=== PATIENT | male | born 1965 | race Caucasian/White ===

== ENCOUNTER → 2022-02-07 | Day surgery (SDC) | payer OTHER ==
[~2022-02-07] VITALS: Ht 175.2 cm; Wt 100.0 kg
[~2022-02-07] MED LIST: HYDROmorphone 2 MG/ML VIAL (DILAUDID) IV ONE; KETOROLAC 30 MG/ML VIAL IVP STA; LACTATED RINGERS 1,000 ML IV PRN; LIDOCAINE PF 2% 5 ML (XYLOCAINE) VIAL ONE; MIDAZOLAM 2 MG/2 ML (VERSED) VIAL INJ STA; MIDAZOLAM 2 MG/2 ML (VERSED) VIAL IVP ONE; NS 1000 ML IV BAG IV STA; NS IV 1000 ML 1,000 ML ONE; ONDANSETRON 4 MG/2 ML (SDV) Z0FRAN IVP PRN; ONDANSETRON 4 MG/2 ML (SDV) Z0FRAN ONE; OXC5T PO; SUCCINYLCHOLINE INJ 20 MG/1 ML 10 ML VIAL ONE; fentaNYL INJ 100 MCG/2 ML AMP INJ STA; fentaNYL INJ 100 MCG/2 ML AMP IVP ONE; fentaNYL INJ 100 MCG/2 ML AMP IVP STA; fentaNYL INJ 100 MCG/2 ML AMP ONE; proPOfol 200 MG/20 ML (DIPRIVAN) VIAL IV ONE
--- NOTE | 2022-02-07 16:42 | ED Upper Extremity ---
General Chief Complaint: Upper Extremity Stated Complaint: WC LT SHOULDER INJ Nursing Triage Note: PT ARRIVAL TO ER VIA WHEELCHAIR WITH COMPLAINT OF RIGHT SIDED PAIN AND LEFT SHOULDER PAIN. PT STATES THAT HE WAS WORKING AT THE [employer] AND A 900 LB STEER RAMMED INTO HIM AND KNOCKED HIM TO THE GROUND. PT IS HAVING SEVERE PAIN TO LEFT SHOULDER/CLAVICLE REGION. STAFF ON SITE SPLINTED SHOULDER AND ARM WITH LARRY WRAP. Source: patient, family History of Present Illness Date Seen by Provider: Feb 07, 2022 Time Seen by Provider: 16:14 Initial Comments 56-year-old male presenting by private vehicle with complaints of left shoulder pain and clavicle pain after being knocked down by a steer. He was working at the [employer] when a 900 pound steer hit him and knocked him to the ground. He denies hitting his head or losing consciousness. He denies any other injuries besides his shoulder and clavicle. He presents in a improvised splint made with an Larry wrap and ice on his shoulder. He states that he last ate around 1:30 PM. He has been drinking water prior to arrival. He has intact sensation and movement to his hand and fingers with good pulses and capillary refill. He denies prior history of injury to the shoulder Onset: just prior to arrival Severity: severe Pain/Injury Location: left shoulder Method of Injury: direct blow Modifying Factors: Worse With Movement Allergies and Home Medications Allergies Coded Allergies: No Known Drug Allergies (Unverified , 02/07/22) Patient Home Medication List Home Medication List Reviewed: Yes Oxycodone Hcl (Oxyir Tablet) 5 Mg Tab, 5 MG PO Q4H Prescribed by: HOMER CALHOUN MD on 02/07/222039 Review of Systems Constitutional: no symptoms reported EENTM: no symptoms reported Respiratory: no symptoms reported Cardiovascular: no symptoms reported Gastrointestinal: no symptoms reported Genitourinary: no symptoms reported Musculoskeletal: see HPI Skin: No change in color Psychiatric/Neurological: Anxiety; Denies Numbness, Denies Paresthesia Past Gjfoyrw-Edzuxv-Ncmboa Hx Patient Social History Tobacco Use?: No Use of E-Cig and/or Vaping dev: No Substance use?: No Alcohol Use?: Yes Alcohol type: Beer Alcohol Frequency: Daily Pt feels they are or have been: No Immunizations Up To Date Influenza Vaccine Up-to-Date: No; Not Current Physical Exam Vital Signs Vital Signs - First Documented 02/07/22 02/07/22 16:21 17:22 Temp 36.7 Pulse 68 Resp 22 B/P (MAP) 160/77 (104) Pulse Ox 98 O2 Delivery Room Air O2 Flow Rate 4.00 4.00 Capillary Refill : Less Than 3 Seconds Height, Weight, BMI Height: '" Weight: lbs. oz. kg; 32.00 BMI Method: General Appearance: moderate distress HEENT: PERRL/EOMI, pharynx normal Neck: non-tender, full range of motion, supple, normal inspection Cardiovascular: normal peripheral pulses, regular rate, rhythm Respiratory: No chest non-tender (tender to palpation left scapula and chest wall); lungs clear, normal breath sounds Shoulder: asymmetry (left shoulder deformity and appears different than right shoulder), bone tenderness, deformity, limited ROM (due to pain in left shoulder), pain (left shoulder) Elbow/Forearm: normal inspection, non-tender, no evidence of injury Wrist: Yes normal inspection, Yes non-tender, Yes no evidence of injury Hand: normal inspection, non-tender, no evidence of injury, normal ROM, Bilateral Neurologic/Tendon: normal sensation, normal motor functions Neurologic/Psychiatric: alert, oriented x 3 Skin: normal color, warm/dry Procedures/Interventions Patient Education: Explained Benefits, Explained Risks, Pt. Ack. Understanding Agreement on procedure with pt: Yes Patient History: Heavy Snoring Breath Sounds per Auscultation: Clear Heart Sounds per Auscultation: Regular Airway Exam: Mouth opens >2 fingers, Neck Full Range of Motion, Visulation of Uvula Sedation Adminstration Time: 17:33 Total Time spent in CS 45 minutes Conscious sedation was started at 1733 with 50 mcg of fentanyl and 5 mg of Versed. Patient was somnolent but arousable. His blood pressure did improve after the medications were administered. Using a traction countertraction process the left shoulder dislocation was attempted to be reduced. Patient continued to tense up periodically so additional milligram of Versed was given and 50 mcg of fentanyl. Continue to hold constant pressure on the left shoulder to attempt to fatigue the muscles of the shoulder so would reduce. Patient had sonorous respirations but aroused to voice. He still was not relaxing enough to get the left shoulder to reduce. Additional 2 mg of Versed were administered and another 50 mcg of fentanyl. Still with no progress on the reduction so another 2 mg of Versed and 25 mcg of fentanyl were administered. Patient remained hemodynamically stable during the procedure. He again had sonorous respirations but aroused to voice. He never relaxed enough to have the left shoulder go back into socket. He remained neurovascularly and tendon intact distally after the attempted reduction. After 45 minutes of trying to reduce the shoulder I called Dr. Calhoun the on-call orthopedic doctor. He agreed to take the patient to the operating room to sedate him with anesthesia to have deeper sedation and relaxation to get the shoulder to reduce. Dr. Long in the emergency department was also notified as the patient will be stopping there prior to going to the operating room. Plan is to discharge to home after the reduction is achieved in the OR. Re-examination Time: 18:20 Progress/Results/Core Measures Results/Orders Lab Results Laboratory Tests Test 02/07/22 16:39 Range/Units Urine Color YELLOW Urine Clarity CLEAR Urine pH 6.5 5-9 Urine Specific [place] 1.020 1.016-1.022 Urine Protein NEGATIVE NEGATIVE Urine Glucose (UA) NEGATIVE NEGATIVE Urine Ketones NEGATIVE NEGATIVE Urine Nitrite NEGATIVE NEGATIVE Urine Bilirubin NEGATIVE NEGATIVE Urine Urobilinogen 1.0 < = 1.0 MG/DL Urine Leukocyte Esterase NEGATIVE NEGATIVE Urine RBC (Auto) NEGATIVE NEGATIVE Urine RBC 5-10 H /HPF Urine WBC NONE /HPF Urine Crystals NONE /LPF Urine Bacteria TRACE /HPF Urine Casts NONE /LPF Urine Mucus LARGE H /LPF Urine Culture Indicated NO My Orders Orders - LIANNA MOORE MD Ed Iv/Invasive Line Start (02/07/22 16:20) Ketorolac Injection (Toradol Injection) (02/07/22 16:20) Fentanyl Inj (Sublimaze Injection) (02/07/22 16:20) Ua Culture If Indicated (02/07/22 16:35) Shoulder 3 View Left (02/07/22 16:35) Fentanyl Inj (Sublimaze Injection) (02/07/22 17:05) Conscious Sedation (02/07/22 17:05) Midazolam Injection (Versed Injection) (02/07/22 17:05) Fentanyl Inj (Sublimaze Injection) (02/07/22 17:05) Ns Iv 1000 Ml (Sodium Chloride 0.9%) (02/07/22 17:05) Monitor-Rhythm Ecg Trace Only (02/07/22 17:05) End Tidal Co2 (02/07/22 17:05) Vital Signs-Conscious Sedation (02/07/22 17:05) Consent-Obtain Consent For (02/07/22 17:05) Shoulder Immoblizer (02/07/22 17:28) Fentanyl Inj (Sublimaze Injection) (02/07/22 17:47) Midazolam Injection (Versed Injection) (02/07/22 19:45) Midazolam Injection (Versed Injection) (02/07/22 19:45) Midazolam Injection (Versed Injection) (02/07/22 19:45) Ns Iv 1000 Ml (Sodium Chloride 0.9%) (02/07/22 17:34) Medications Given in ED Current Medications Medications Dose Ordered Sig/Alexis Route Start Time Stop Time Status Last Admin Dose Admin Fentanyl Citrate 100 mcg STK-MED ONCE .ROUTE 02/07/22 17:47 02/07/22 17:50 DC 02/07/22 17:47 50 MCG Vital Signs/I&O 02/07/22 02/07/22 02/07/22 02/07/22 16:21 17:22 19:43 20:32 Temp 36.7 Pulse 68 88 Resp 22 16 B/P (MAP) 160/77 (104) 167/100 (122) Pulse Ox 98 99 O2 Delivery Room Air Nasal Cannula Room Air Room Air O2 Flow Rate 4.00 4.00 02/07/22 02/07/22 02/07/22 02/07/22 20:32 20:40 20:40 20:50 Temp 36.4 Resp 20 18 B/P (MAP) 178/96 (123) 178/93 (121) Pulse Ox 98 94 O2 Delivery Room Air Room Air Room Air Room Air 02/07/22 02/07/22 02/07/22 02/07/22 20:50 20:59 21:00 21:00 Temp 36.5 Resp 18 18 B/P (MAP) 172/87 (115) 163/86 (111) Pulse Ox 93 93 O2 Delivery Room Air Room Air Room Air Room Air Blood Pressure Mean: 104 Progress Progress Note #1: Progress Note Administer 50 mcg of fentanyl and 30 mg of IV Toradol for pain so the x-rays can be obtained of the left shoulder. Progress Note #2: Progress Note X-rays of the left shoulder demonstrate dislocation of the left shoulder with greater tuberosity fracture and displacement. Patient has neurovascular and tendon intact distally. Consented for conscious sedation and closed reduction of the left shoulder. Progress Note #3: Progress Note Conscious sedation was started at 1733 with 50 mcg of fentanyl and 5 mg of Versed. Patient was somnolent but arousable. His blood pressure did improve after the medications were administered. Using a traction countertraction process the left shoulder dislocation was attempted to be reduced. Patient continued to tense up periodically so additional milligram of Versed was given and 50 mcg of fentanyl. Continue to hold constant pressure on the left shoulder to attempt to fatigue the muscles of the shoulder so would reduce. Patient had sonorous respirations but aroused to voice. He still was not relaxing enough to get the left shoulder to reduce. Additional 2 mg of Versed were administered and another 50 mcg of fentanyl. Still with no progress on the reduction so another 2 mg of Versed and 25 mcg of fentanyl were administered. Patient remained hemodynamically stable during the procedure. He again had sonorous respirations but aroused to voice. He never relaxed enough to have the left shoulder go back into socket. He remained neurovascularly and tendon intact distally after the attempted reduction. After 45 minutes of trying to reduce the shoulder I called Dr. Calhoun the on-call orthopedic doctor. He agreed to take the patient to the operating room to sedate him with anesthesia to have deeper sedation and relaxation to get the shoulder to reduce. Dr. Long in the emergency department was also notified as the patient will be stopping there prior to going to the operating room. Plan is to discharge to home after the reduction is achieved in the OR. Departure Impression Primary Impression: Closed dislocation of left shoulder Qualified Codes: S43.005A - Unspecified dislocation of left shoulder joint, initial encounter Additional Impression: Closed fracture of greater tuberosity of left humerus Qualified Codes: S42.252A - Displaced fracture of greater tuberosity of left humerus, initial encounter for closed fracture Disposition: 01 HOME, SELF-CARE Condition: Stable Departure-Patient Inst. Decision time for Depature: 22:35 Referrals: PANTERA BARAKAT MD (PCP) Primary Care Physician Patient Instructions: Procedural Sedation, Adult ED, Shoulder Dislocation (DC), Shoulder Fracture (DC) Add. Discharge Instructions: Work Comp restrictions per Orthopedics from [facility] All discharge instructions reviewed with patient and/or family. Voiced understanding. Scripts Oxycodone Hcl (OXYIR TABLET) 5 Mg Tab 5 MG PO Q4H for Severe Pain for 5 Days, #30 TAB 0 Refills Prov: HOMER CALHOUN MD 02/07/22 LIANNA MOORE MD Feb 07, 2022 16:42
[2022-02-07 16:49] LABS: BILIRUBIN,URINE NEGATIVE (NEGATIVE); CLARITY,URINE CLEAR; COLOR,URINE YELLOW; GLUCOSE, URINE (UA) NEGATIVE (NEGATIVE); KETONES,URINE NEGATIVE (NEGATIVE); LEUKOCYTE ESTERASE ,URINE NEGATIVE (NEGATIVE); NITRITE,URINE NEGATIVE (NEGATIVE); PH,URINE 6.5 (5-9); PROTEIN,URINE NEGATIVE (NEGATIVE)
[2022-02-07 16:52] LABS: BACTERIA,URINE TRACE /HPF
--- NOTE | 2022-02-07 17:04 | Diagnostic Imaging Report ---
INDICATION: Pain. EXAMINATION: Left shoulder, 02/07/2022. FINDINGS: 3 views of the shoulder. There is a subcoracoid dislocation of the humeral head with osseous fracture fragments lateral to the humeral head also noted. The acromioclavicular joint is maintained. Visualized lung clear. IMPRESSION: Fracture dislocation of the humeral head. Postreduction imaging recommended. Dictated by: Dictated on workstation # [id number]
[2022-02-07 20:32] VITALS: BP 178/96
--- NOTE | 2022-02-07 20:38 | Diagnostic Imaging Report ---
INDICATION: Left shoulder pain. IMPRESSION: 2.5 seconds of fluoroscopy and three digital images were used in surgery during reduction of the left shoulder. Images appear to show a Hill-Sachs fracture of the proximal humerus. Dictated by: Dictated on workstation # [id number]
[2022-02-07 20:40] VITALS: BP 178/93
--- NOTE | 2022-02-07 20:44 | Operative Report - Ortho ---
Operative Report Surgeon (s)/Pickler Helper (s) Surgeon HOMER DUGAN MD Pickler Helper n/a Pre-Operative Diagnosis Left Shoulder Dislocation and Left Greater Tuberosity Fracture Post-Operative Diagnosis same Operative Report Date of Procedure: Feb 07, 2022 Name of Procedure Performed: Closed Reduction of Left Shoulder Dislocation and Closed Treatment of Left Greater Tuberosity Fracture Description & Findings After obtaining consent, patient was taken to the operating room and general anesthesia was induced. Surgical timeout was taken. Using traction- countertraction technique with gentle rotation and abduction, the shoulder was reduced. C-arm was used to confirm reduction. Patient was placed in sling and swathe after reduction. Tolerated the procedure well and was stable to the recovery room. Anesthesia Type General Estimated Blood Loss None Specimen(s) collected/removed None HOMER DUGAN MD Feb 07, 2022 20:44
--- NOTE | 2022-02-07 20:49 | Anesthesia-General Post-Op ---
General Patient Condition Mental Status/LOC: Same as Preop Cardiovascular: Satisfactory Nausea/Vomiting: Absent Respiratory: Satisfactory Pain: Controlled Complications: Absent Post Op Complications Complications None Follow Up Care/Instructions Patient Instructions None needed. Anesthesia/Patient Condition Patient Condition Patient is doing well, no complaints, stable vital signs, no apparent adverse anesthesia problems. No complications reported per nursing. DESTINY DONALD CRNA Feb 07, 2022 20:48
[2022-02-07 20:50] VITALS: BP 172/87
[2022-02-07 21:00] VITALS: BP 163/86
== END ==
LOC: ER FS 16:05 → SDC 19:12
PROVIDERS: ATTEND Orthopaedic Surgery
DX: S43.005A Unspecified dislocation of left shoulder joint, initial encounter (principal); S42.252A Displaced fracture of greater tuberosity of left humerus, initial encounter for closed fracture
CPT/HCPCS: 73030; 76000; 81000; 93041; 99291

== ENCOUNTER → 2022-02-19 | Outpatient (CLI) | payer OTHER ==
[~2022-02-19] MED LIST changes: -HYDROmorphone 2 MG/ML VIAL (DILAUDID) IV ONE; -KETOROLAC 30 MG/ML VIAL IVP STA; -LACTATED RINGERS 1,000 ML IV PRN; -LIDOCAINE PF 2% 5 ML (XYLOCAINE) VIAL ONE; -MIDAZOLAM 2 MG/2 ML (VERSED) VIAL INJ STA; -MIDAZOLAM 2 MG/2 ML (VERSED) VIAL IVP ONE; -NS 1000 ML IV BAG IV STA; -NS IV 1000 ML 1,000 ML ONE; -ONDANSETRON 4 MG/2 ML (SDV) Z0FRAN IVP PRN; -ONDANSETRON 4 MG/2 ML (SDV) Z0FRAN ONE; -SUCCINYLCHOLINE INJ 20 MG/1 ML 10 ML VIAL ONE; -fentaNYL INJ 100 MCG/2 ML AMP INJ STA; -fentaNYL INJ 100 MCG/2 ML AMP IVP ONE; -fentaNYL INJ 100 MCG/2 ML AMP IVP STA; -fentaNYL INJ 100 MCG/2 ML AMP ONE; -proPOfol 200 MG/20 ML (DIPRIVAN) VIAL IV ONE
== END ==
LOC: ORTHO 14:23
PROVIDERS: ATTEND Orthopaedic Surgery
DX: S43.006A Unspecified dislocation of unspecified shoulder joint, initial encounter (principal); X58.XXXA Exposure to other specified factors, initial encounter

== ENCOUNTER → 2022-03-18 | Outpatient (CLI) | payer BC ==
--- NOTE | 2022-03-18 19:16 | Diagnostic Imaging Report ---
EXAMINATION: Magnetic resonance imaging of the left shoulder without contrast. DATE: March 18, 2022. COMPARISON: Left shoulder radiographs February 07, 2022. HISTORY: 56-year-old male, left shoulder pain. TECHNIQUE: Magnetic Resonance Imaging sequences were performed of the shoulder without contrast. FINDINGS: ROTATOR CUFF, LIGAMENTS, TENDONS, AND MUSCLES: There is severe subscapularis tendinopathy. The teres minor tendon is intact. There appear to be full thickness full width tears of both the supraspinatus and infraspinatus tendons. There is an area of ossification associated with the infraspinatus measuring approximately 2.7 x 0.8 cm in size as measured on sagittal T1 sequence image 12. There is no fatty muscle atrophy. There is edema-like signal in the infraspinatus muscle and minimal edema in the supraspinatus and subscapularis muscles which may reflect low-grade muscle strains. Early denervation related signal changes is also considered. LONG HEAD OF BICEPS: The biceps labral attachment and long head of the biceps tendon is intact. The long head of the biceps tendon is normally positioned within the bicipital groove. GLENOHUMERAL JOINT: The humeral head is posteriorly subluxed and directly abuts the posterior glenoid. There is an inferior labral tear best demonstrated on coronal T2 fat saturation sequence image 11 and adjacent sequential images. There is additional abnormal signal in this region concerning for injury of the glenoid attachment of the inferior glenohumeral ligament complex. There is no identified articular cartilage defect. There is a moderate to large glenohumeral joint effusion. There is no identified intra-articular body or prominent synovitis. ACROMIOCLAVICULAR JOINT: The acromioclavicular joint is normally aligned. The coracoclavicular and coracoacromial ligaments are intact. There are mild acromioclavicular degenerative changes without large undersurface osteophyte. BONE: There is no os acromiale. There is a bony defect of the lateral aspect of the humeral head measuring approximately 1.8 x 0.8 x 2.1 cm in size most likely reflecting an impaction type fracture. There is no particularly prominent underlying marrow edema. BURSAE AND SOFT TISSUES: There is a very small amount of fluid in the subacromial subdeltoid bursa. IMPRESSION: 1. Full thickness full width tears of the supraspinatus and infraspinatus tendons with areas of ossification in the region of the infraspinatus, in particular, there is severe subscapularis tendinopathy. No pronounced fatty muscle atrophy. Edema in the infraspinatus and to a lesser extent in the supraspinatus and subscapularis muscles may reflect low-grade muscle strains or early denervation related signal changes. 2. Mild acromioclavicular degenerative changes without large undersurface osteophyte. 3. The humeral head is posteriorly subluxed and directly contacts the posterior glenoid. Inferior labral tear and probable tear involving the inferior glenohumeral ligament complex near its glenoid attachment. 4. Intact proximal long head of biceps tendon. Dictated by: Dictated on workstation # [id number]
== END ==
LOC: RAD 14:08
PROVIDERS: ATTEND Orthopaedic Surgery
DX: S43.015D Anterior dislocation of left humerus, subsequent encounter (principal); M75.122 Complete rotator cuff tear or rupture of left shoulder, not specified as traumatic; M19.012 Primary osteoarthritis, left shoulder; M25.712 Osteophyte, left shoulder; S43.002A Unspecified subluxation of left shoulder joint, initial encounter
CPT/HCPCS: 73221